=== PATIENT | female | born 1955 | race Caucasian/White ===

== ENCOUNTER 2022-11-24 11:14 | Observation (INO) | payer MEDICARE ==
[2022-11-24] VITALS (32 sets, daily range): BP systolic 92–165; BP diastolic 44–139
[~2022-11-24] VITALS: Ht 157.5 cm; Wt 108.2 kg
[2022-11-24] MEDS ORDERED: METFORMIN HCL500 M1 PO (12:22)
[2022-11-24] MEDS ORDERED: GLIMEPIRIDE2 MG PO (12:22)
[2022-11-24] MEDS ORDERED: ELIQUIS5 MG PO (12:25)
[2022-11-24] MEDS ORDERED: TAMOXIFEN CITRA10 MG PO (12:26)
[2022-11-24] MEDS ORDERED: ASPIRIN81 MG PO (12:26)
[2022-11-24] MEDS ORDERED: METOPROL TAR100 MG PO (12:29)
[2022-11-24] MEDS ORDERED: LOSARTAN POTASS25 MG PO (12:29)
[2022-11-24] MEDS ORDERED: CYMBALTA30 MG PO (12:30)
[2022-11-24] MEDS ORDERED: LEVOTHYROXIN125 MCG PO (12:30)
[2022-11-24] MEDS ORDERED: ZOLPIDEM10 M1 PO (12:30)
[2022-11-24] MEDS ORDERED: DIAZEPAM5 MG PO (12:31)
[2022-11-24 13:41] LABS: BASO% 0.5 % (0-3); EOS% 0.6 % (0-8); HEMATOCRIT 29.2 % (37.0-47.0); HEMOGLOBIN 9.5 g/dl (12.0-16.0); IMMATURE GRANULOCYTES 0.4 % (0.0-5.0); LYMPH% 22.6 % (15-41); MEAN CELL VOLUME 96.1 fL CALC (80.0-100.0); MEAN CORPUSCULAR HGB 31.3 pG CALC (26.0-32.0); MEAN CORPUSCULAR HGB CONC 32.5 g/dL CAL (32.0-36.0); MONO% 3.2 % (2-13); NEUT# 10.11 thou/uL (2.00-7.15); NEUT% 72.7 % (42-76); RED BLOOD COUNT 3.04 mill/uL (4.20-5.60)
[2022-11-24 13:58] LABS: INTERNATIONAL NORMALIZED RATIO 1.2 RATIO (0.7-1.3); PROTHROMBIN TIME 11.6 SECONDS (9.0-12.5)
[2022-11-24 14:02] LABS: ALBUMIN 3.3 g/dL (3.2-5.0); ALKALINE PHOSPHATASE 44 u/l (38-126); ANION GAP 11 (6-22 (CALC)); BILIRUBIN, TOTAL 0.4 mg/dL (0.02-1.3); BUN 31 mg/dL (8-23); BUN/CREATININE RATIO 36 (12-20 (CALC)); CARBON DIOXIDE 23 mmol/l (22-30); CHLORIDE 107 mmol/l (95-108); CREATININE 0.9 mg/dL (0.5-1.0); GFR FOR AFR.AMER. > 60 ML/MIN (>=60 (CALC)); GFR OTHER RACES > 60 ML/MIN (>=60 (CALC)); LIPASE 72 u/l (23-300); POTASSIUM 4.6 mmol/l (3.5-5.1); SGOT/AST 33 u/l (9-36); SODIUM 137 mmol/l (137-146); TOTAL PROTEIN 5.8 g/dL (6.3-8.2)
[2022-11-25] VITALS (7 sets, daily range): BP systolic 101–156; BP diastolic 48–71
[2022-11-25 05:24] LABS: BASO% 0.6 % (0-3); EOS% 1.6 % (0-8); HEMATOCRIT 23.9 % (37.0-47.0); HEMOGLOBIN 7.8 g/dl (12.0-16.0); IMMATURE GRANULOCYTES 0.2 % (0.0-5.0); MEAN CELL VOLUME 98.4 fL CALC (80.0-100.0); MEAN CORPUSCULAR HGB 32.1 pG CALC (26.0-32.0); MEAN CORPUSCULAR HGB CONC 32.6 g/dL CAL (32.0-36.0); MONO% 3.8 % (2-13); NEUT# 7.28 thou/uL (2.00-7.15); NEUT% 57.5 % (42-76); RED BLOOD COUNT 2.43 mill/uL (4.20-5.60); RED CELL DISTRI WIDTH 14.3 % (11.5-15.5)
[2022-11-25 05:52] LABS: ANION GAP 9 (6-22 (CALC)); BUN 25 mg/dL (8-23); BUN/CREATININE RATIO 29 (12-20 (CALC)); CARBON DIOXIDE 23 mmol/l (22-30); CHLORIDE 109 mmol/l (95-108); CREATININE 0.9 mg/dL (0.5-1.0); GFR FOR AFR.AMER. > 60 ML/MIN (>=60 (CALC)); GFR OTHER RACES > 60 ML/MIN (>=60 (CALC)); POTASSIUM 3.9 mmol/l (3.5-5.1); SODIUM 137 mmol/l (137-146)
[2022-11-25 06:09] LABS: LYMPH% 36.3 % (15-41)
[2022-11-25 17:24] LABS: HEMATOCRIT 25.6 % (37.0-47.0); HEMOGLOBIN 8.2 g/dl (12.0-16.0)
[2022-11-25 20:25] LABS: URINE BILIRUBIN - DIPSTICK NEGATIVE (NEGATIVE); URINE BLOOD DIPSTICK TRACE-INTACT (NEGATIVE); URINE COLOR YELLOW; URINE GLUCOSE - DIPSTICK NEGATIVE (NEGATIVE); URINE KETONE NEGATIVE (NEGATIVE); URINE LEUK ESTERASE NEGATIVE (NEGATIVE); URINE NITRITE - DIPSTICK NEGATIVE (Negative); URINE PROTEIN - DIPSTICK NEGATIVE (NEG-TRACE); URINE SPECIFIC GRAVITY >=1.030; URINE UROBILINOGEN - DIPSTICK 0.2 E.U./dL (0.2)
[2022-11-26] VITALS (22 sets, daily range): BP systolic 110–135; BP diastolic 42–62
[2022-11-26 06:13] LABS: ANION GAP 7 (6-22 (CALC)); BUN 15 mg/dL (8-23); BUN/CREATININE RATIO 17 (12-20 (CALC)); CARBON DIOXIDE 24 mmol/l (22-30); CHLORIDE 110 mmol/l (95-108); CREATININE 0.9 mg/dL (0.5-1.0); GFR FOR AFR.AMER. > 60 ML/MIN (>=60 (CALC)); GFR OTHER RACES > 60 ML/MIN (>=60 (CALC)); MAGNESIUM 1.9 mg/dL (1.6-2.3); POTASSIUM 3.5 mmol/l (3.5-5.1); SODIUM 137 mmol/l (137-146)
[2022-11-26 06:24] LABS: BASO% 0.4 % (0-3); EOS% 2.9 % (0-8); HEMATOCRIT 21.7 % (37.0-47.0); IMMATURE GRANULOCYTES 0.4 % (0.0-5.0); LYMPH% 37.1 % (15-41); MEAN CELL VOLUME 99.5 fL CALC (80.0-100.0); MEAN CORPUSCULAR HGB 32.1 pG CALC (26.0-32.0); MEAN CORPUSCULAR HGB CONC 32.3 g/dL CAL (32.0-36.0); MONO% 3.5 % (2-13); NEUT# 5.2 thou/uL (2.00-7.15); NEUT% 55.7 % (42-76); RED BLOOD COUNT 2.18 mill/uL (4.20-5.60); RED CELL DISTRI WIDTH 14.4 % (11.5-15.5)
[2022-11-26 06:31] LABS: HEMOGLOBIN 7.1 g/dl (12.0-16.0)
[2022-11-27 04:22] VITALS: BP 124/58
[2022-11-27 05:12] LABS: BASO% 0.7 % (0-3); EOS% 2.3 % (0-8); HEMATOCRIT 26.4 % (37.0-47.0); HEMOGLOBIN 8.5 g/dl (12.0-16.0); IMMATURE GRANULOCYTES 1.2 % (0.0-5.0); LYMPH% 37.1 % (15-41); MEAN CELL VOLUME 96.7 fL CALC (80.0-100.0); MEAN CORPUSCULAR HGB 31.1 pG CALC (26.0-32.0); MEAN CORPUSCULAR HGB CONC 32.2 g/dL CAL (32.0-36.0); MONO% 4.4 % (2-13); NEUT# 5.12 thou/uL (2.00-7.15); NEUT% 54.3 % (42-76); RED BLOOD COUNT 2.73 mill/uL (4.20-5.60); RED CELL DISTRI WIDTH 15.5 % (11.5-15.5)
[2022-11-27 05:28] LABS: ANION GAP 6 (6-22 (CALC)); BUN 9 mg/dL (8-23); BUN/CREATININE RATIO 9 (12-20 (CALC)); CARBON DIOXIDE 23 mmol/l (22-30); CHLORIDE 113 mmol/l (95-108); GFR FOR AFR.AMER. > 60 ML/MIN (>=60 (CALC)); GFR OTHER RACES 55 ML/MIN (>=60 (CALC)); MAGNESIUM 1.8 mg/dL (1.6-2.3); POTASSIUM 3.4 mmol/l (3.5-5.1); SODIUM 139 mmol/l (137-146)
[2022-11-27 06:47] VITALS: BP 116/52
[2022-11-27 10:53] VITALS: BP 136/66
[2022-11-27 14:15] VITALS: BP 139/69
[2022-11-27 18:44] VITALS: BP 119/98
[2022-11-27 23:55] VITALS: BP 116/55
[2022-11-28 03:53] VITALS: BP 154/67
[2022-11-28 05:31] LABS: HEMOGLOBIN 8.7 g/dl (12.0-16.0); MEAN CELL VOLUME 96.8 fL CALC (80.0-100.0); MEAN CORPUSCULAR HGB 31.2 pG CALC (26.0-32.0); MEAN CORPUSCULAR HGB CONC 32.2 g/dL CAL (32.0-36.0); RED BLOOD COUNT 2.79 mill/uL (4.20-5.60); RED CELL DISTRI WIDTH 15.8 % (11.5-15.5)
[2022-11-28 05:49] LABS: ALBUMIN 2.9 g/dL (3.2-5.0); ALKALINE PHOSPHATASE 48 u/l (38-126); ANION GAP 6 (6-22 (CALC)); BILIRUBIN, TOTAL 0.4 mg/dL (0.02-1.3); BUN 8 mg/dL (8-23); BUN/CREATININE RATIO 9 (12-20 (CALC)); CARBON DIOXIDE 23 mmol/l (22-30); CHLORIDE 112 mmol/l (95-108); CREATININE 0.9 mg/dL (0.5-1.0); GFR FOR AFR.AMER. > 60 ML/MIN (>=60 (CALC)); GFR OTHER RACES > 60 ML/MIN (>=60 (CALC)); MAGNESIUM 1.9 mg/dL (1.6-2.3); POTASSIUM 3.2 mmol/l (3.5-5.1); SGOT/AST 36 u/l (9-36); SODIUM 139 mmol/l (137-146); TOTAL PROTEIN 5.3 g/dL (6.3-8.2)
[2022-11-28 07:03] VITALS: BP 123/64
[2022-11-28 07:04] VITALS: BP 123/64
[2022-11-28] MEDS ORDERED: CLARITHROMYCIN500 MG PO (08:53)
[2022-11-28] MEDS ORDERED: AMOXICILLIN500 M2 PO (08:54)
[2022-11-28] MEDS ORDERED: PANTOPRAZOLE SO40 M1 PO (08:54)
[2022-11-28 09:58] VITALS: BP 109/57
[2022-11-29] MEDS ORDERED: ZYRTEC10 MG PO (12:41)
== END 2022-11-28 11:41 | disposition home or self-care (01) ==
LOC: ED 11:14 → ED-I 15:15 → ED 15:28 → MS2 15:29
PROVIDERS: Internal Medicine; Nurse Practitioner; ADMIT Internal Medicine; ATTEND Internal Medicine
PROC: 0DJD8ZZ Inspection of Lower Intestinal Tract, Via Natural or Artificial Opening Endoscopic (ICD-10-PCS; principal; 2022-11-26)
PROC: 0DB78ZX Excision of Stomach, Pylorus, Via Natural or Artificial Opening Endoscopic, Diagnostic (ICD-10-PCS; 2022-11-26)
PROC: 30233N1 Transfusion of Nonautologous Red Blood Cells into Peripheral Vein, Percutaneous Approach (ICD-10-PCS; 2022-11-26)
DX: K25.4 Chronic or unspecified gastric ulcer with hemorrhage (principal); D62 Acute posthemorrhagic anemia; K44.9 Diaphragmatic hernia without obstruction or gangrene; K57.30 Diverticulosis of large intestine without perforation or abscess without bleeding; K64.8 Other hemorrhoids; I10 Essential (primary) hypertension; E11.9 Type 2 diabetes mellitus without complications; E89.0 Postprocedural hypothyroidism; F41.9 Anxiety disorder, unspecified; Z85.850 Personal history of malignant neoplasm of thyroid; Z86.718 Personal history of other venous thrombosis and embolism; Z79.01 Long term (current) use of anticoagulants; Z85.3 Personal history of malignant neoplasm of breast; Z79.84 Long term (current) use of oral hypoglycemic drugs; Z79.82 Long term (current) use of aspirin; Z20.822 Contact with and (suspected) exposure to COVID-19
CPT/HCPCS: P9016; Q9967; S0164

== ENCOUNTER 2022-11-29 12:04 | Emergency (ER) | payer MEDICARE ==
[~2022-11-29] VITALS: Ht 157.5 cm; Wt 104.0 kg
[~2022-11-29 12:04] MED LIST: AMOXICILLIN500 M2 PO; ASPIRIN81 MG PO; CLARITHROMYCIN500 MG PO; CYMBALTA30 MG PO; DIAZEPAM5 MG PO; ELIQUIS5 MG PO; GLIMEPIRIDE2 MG PO; LEVOTHYROXIN125 MCG PO; LOSARTAN POTASS25 MG PO; METFORMIN HCL500 M1 PO; METOPROL TAR100 MG PO; PANTOPRAZOLE SO40 M1 PO; TAMOXIFEN CITRA10 MG PO; ZOLPIDEM10 M1 PO
[2022-11-29 12:14] VITALS: BP 148/67
[2022-11-29 12:30] VITALS: BP 128/73
[2022-11-29] MEDS ORDERED: ZYRTEC10 MG PO (12:41)
[2022-11-29 12:45] VITALS: BP 123/65
[2022-11-29 12:58] VITALS: BP 123/65
== END 2022-11-29 13:00 | disposition home or self-care (01) ==
LOC: ED 12:04
DX: L27.1 Localized skin eruption due to drugs and medicaments taken internally (principal); R22.0 Localized swelling, mass and lump, head; T36.0X5A Adverse effect of penicillins, initial encounter; T36.3X5A Adverse effect of macrolides, initial encounter; I10 Essential (primary) hypertension; E11.9 Type 2 diabetes mellitus without complications; Z79.84 Long term (current) use of oral hypoglycemic drugs; Z88.0 Allergy status to penicillin